=== PATIENT | female | born 1955 | race Caucasian/White ===

== ENCOUNTER 2020-09-28 17:33 | Emergency (ER) | payer OTHER, SELFPAY ==
[2020-09-28 17:50] VITALS: BP 132/69; PULSE 72; RESP 16; TEMP 36.4; O2SAT 97; BMI 19.2
--- NOTE | 2020-09-28 18:02 | HMH.EDUTC ---
[facility] [place] Clinical Impression: Cat bite of face Qualifiers: Encounter type: initial encounter Qualified Code(s): S01.85XA - Open bite of other part of head, initial encounter; W55.01XA - Bitten by cat, initial encounter Disposition: Home, Self-Care Condition on Discharge: Good Instructions: DI for Cat Bite Additional Instructions: Return to [facility] if pain, redness, drainage, fever, etc Prescriptions: Amoxicillin/Potassium Clav [Augmentin 875-125 Tablet] 1 tab PO Q12H 10 Days #20 tab Transmission Status: Pending to [facility]/pharmacy #[id number] Referrals: PCP,No [Primary Care Provider] - Time of Disposition: 18:11 Medical Decision Making - Souleymane Inquiry Pt receiving controlled substance: No [facility] [place] - General Stated complaint: AO [id number] cat bite L hand facial Time Seen by Provider: 09/28/20 18:02 - History of Present Illness Provider Complaint: Patient was bitten by cat last night. Cat bit the right side of her forehead and sikh and left hand. Cat is UTD on immunizations. Onset (ago): day(s) (1) Location: face, left Relieving factors: none Exacerbating factors: none Associated symptoms: denies other symptoms Treatments prior to arrival: none - Related Data Previous Rx's Medication Instructions Recorded Amoxicillin/Potassium Clav 1 tab PO Q12H 10 Days #20 tab 09/28/20 [Augmentin 875-125 Tablet] [facility] History - Hepatitis A Screen Attestation statement:: This patient has been screened for Hepatitis A risk factors. I have reviewed the patient's past medical history: Yes ROS Obtained: Yes All systems reviewed & no additional complaints - Integumentary/Breasts Skin/Breast: Reports as per HPI Physical Exam - General General appearance: alert, in no apparent distress - Head Head exam: normocephalic - Eye Eye exam: Present: PERRL - ENT ENT exam: Present: normal oropharynx - Respiratory Respiratory exam: Present: normal lung sounds bilaterally - Cardiovascular Cardiovascular exam: Present: regular rate, normal rhythm - Neurological Exam Neurological exam: Present: alert, oriented X3 - Psychiatric Psychiatric exam: Present: normal affect, normal mood - Skin Skin exam: Present: other (cat bite right side of forehead and sikh, left hand)
--- NOTE | 2020-09-28 18:15 | PC.NURSE ---
TDAP GIVEN TO PATIENT AT THIS TIME. LEFT DELTOID. LOT #[id number] EXP. 04/27/22
[2020-09-28 18:23] VITALS: BP 132/69; PULSE 72; RESP 16; TEMP 36.4; O2SAT 97
== END 2020-09-28 18:25 | disposition home or self-care (01) ==
PROVIDERS: Emergency Provider Physician Assistant
DX: S01.85XA Open bite of other part of head, initial encounter (principal); S60.572A Other superficial bite of hand of left hand, initial encounter; W55.01XA Bitten by cat, initial encounter; Y92.019 Unspecified place in single-family (private) house as the place of occurrence of the external cause; Z23 Encounter for immunization
CPT/HCPCS: 90471; 99202; G0463